=== PATIENT | female | born 1985 | race Caucasian/White ===

== ENCOUNTER 2017-08-06 02:01 | Emergency (ER) | payer MEDICAID, OTHER ==
[~2017-08-06] VITALS: Ht 165.1 cm; Wt 80.0 kg
[~2017-08-06 02:01] MED LIST: IBUP600 PO; PERI8.6T PO; [UNRECOGNIZED DRUG - OTHER] PO/TUBE
[2017-08-06 02:04] VITALS: BP 129/82; PULSE 112; RESP 16; TEMP 98.8; O2SAT 98
--- NOTE | 2017-08-06 02:34 | PD ---
HPI Chief Complaint: ENT Complaint Time Seen by Provider: 02:23 Travel History International Travel<30 days: No Contact w/Intl Traveler<30days: No Traveled to known affect area: No History of Present Illness HPI Patient comes in complaining of bilateral ear pain that began yesterday. Patient states started off in her left to her when she awoke, it was worse in her right ear. Patient describes pain as sharp stabbing in nature and radiates inferiorly. Patient states she smoked some marijuana without improvement of her symptoms. Patient denies anything making it worse. Denies any known fevers , nausea or vomiting, , recent swimming, chest pain, shortness breath, cough, or difficulty swallowing. PFSH Past Medical History Medical History: Denies Significant Hx Diminished Hearing: No Tetanus Vaccination: Unknown Influenza Vaccination: No ?: Not LMP: 2 WEEKS AGO Past Surgical History Surgical History: No Previous Surgery Social History Alcohol Use: No Tobacco Use: No Substance Use: No Allergies-Medications (Allergen,Severity, Reaction): Coded Allergies: No Known Allergies (Unverified Adverse Reaction, Unknown, 08/06/17) Reported Meds & Prescriptions Reported Meds & Active Scripts Active Dcmvsfgu-Gogtbxhxa-YJ Otic Drops 3.5-10,000-1 Mg-Units-% Soln 4 Drop EACH EAR QID Review of Systems Except as stated in HPI: all other systems reviewed are Neg Physical Exam Narrative GENERAL: Well-developed, overly nourished, in no acute distress, and non-ill appearing. SKIN: Focused skin assessment warm and dry. HEAD: Atraumatic. Normocephalic. EYES: Pupils equal and round. EOMI. No scleral icterus. No injection or drainage. ENT: No nasal bleeding or discharge. Mucous membranes pink and moist. Tympanic membranes pearly meng bilaterally. Bilateral auditory canals are erythematous and edematous right greater than left. There is reproducible pain with tugging of the auricle and tragus. Uvula is midline. Posterior pharynx nonerythematous without exudate. NECK: Trachea midline. No cervical lymphadenopathy. Supple. No nuclear rigidity. RESPIRATORY: No accessory muscle use. No respiratory distress. MUSCULOSKELETAL: No obvious deformities. No clubbing. No cyanosis. No edema. Full range of motion. NEUROLOGICAL: Awake and alert. No obvious cranial nerve deficits. Motor grossly within normal limits. Normal speech. PSYCHIATRIC: Appropriate mood and affect; insight and judgment normal. Data Data Last Documented VS Vital Signs Date Time Temp Pulse Resp B/P (MAP) Pulse Ox O2 Delivery O2 Flow Rate FiO2 08/06/17 02:06 16 08/06/17 02:04 98.8 112 129/82 (98) 98 Orders Orders Ed Discharge Order (08/06/17 02:37) MDM Medical Decision Making Medical Screen Exam Complete: Yes Emergency Medical Condition: Yes Differential Diagnosis Otitis media, otitis externa, otalgia, other Narrative Course The patient presented with ear pain. History and examination revealed evidence of otitis externa. There was no significant swelling of the canal nor significant debris. No clinical evidence by history or evaluation to suspect meningitis and/or sepsis, nor malignant OE or mastoiditis. I discussed with the patient, diagnosis, plan of care and to follow up with the patients primary physician within the next week. The patient was discharged on otic antibiotic drops. The patient was instructed to not swim or submerge head in bath or shower , or any other activity that would allow water into canal until cleared by their physician. The patient was instructed to return if worsens in anyway, especially if increased pain, develop fever, worsening headache, neck pain or as needed. The patient agreed with plan. Patient in no obvious distress upon re-evaluation. Patient was asked if they wanted to speak to my attending, which the patient did not wish to do at this time. Any questions/concerns in reference to patient diagnosis/condition discussed and clarified prior to patient's discharge. Reinforced sheer importance of close follow up with patient's primary physician or primary care clinic. Instructed patient to return to ED immediately, if symptoms return/ worsen. Patient showed understanding of above instructions. Further instructions and recommendations were detailed in discharge paperwork. Patient ambulated without difficulty out of ED at discharge. Diagnosis Primary Impression: Otitis externa of both ears Qualified Codes: H60.503 - Unspecified acute noninfective otitis externa, bilateral Referrals: [facility] Patient Instructions: General Instructions, Otitis Externa (ED) Additional Instructions: Follow-up with your primary care physician and/or ENT in 5-7 days for evaluation. Take all medication as prescribed. Use vkwe-yvt-qqeakli Tylenol and/or ibuprofen as needed for pain. Follow instructions on the packaging. Return to the emergency department if symptoms get worse. Med/Other Pt SpecificInfo: Prescription(s) given Scripts Zbrvhivh-Succpzjsz-HU Otic Drops (Kdmmpbxn-Zkggjuesh-XE Otic Drops) 3.5-10,000- 1 Mg-Units-% Soln 4 DROP EACH EAR QID for Infection, #1 BOTTLE 0 Refills Prov: Diana Perez MD 08/06/17 Disposition: 01 DISCHARGE HOME Condition: Stable Darrick Wilson Aug 06, 2017 02:34
[2017-08-06] MEDS ORDERED: NEOM1SOL7 EACH EAR (02:37)
== END 2017-08-06 02:55 | disposition home or self-care (01) ==
LOC: NEPD 02:01
DX: H60.503 Unspecified acute noninfective otitis externa, bilateral (principal)
CPT/HCPCS: 99283